=== PATIENT | female | born 1945 | race Two or more races ===

== ENCOUNTER 2025-07-30 10:35 | Outpatient (CLI) | payer MEDICAID ==
[2025-07-30 11:22] LABS: Hematocrit 35.0 % (36.0-46.0); Hemoglobin 11.4 g/dL (12.2-16.2); Mean Corpuscular Hemoglobin 26.9 pg (28.0-32.0); Mean Corpuscular Volume 82.4 fL (80.0-100.0); Nucleated Red Blood Cells % 0.0 %
[2025-07-30 11:45] LABS: Urine Budding Yeast OCCASIONAL /hpf (None Seen); Urine Protein, UAD 1+ (Negative)
[2025-07-30 11:56] LABS: Alanine Aminotransferase 12 U/L (7-40); Albumin 4.2 g/dL (3.2-4.8); Alkaline Phosphatase 73 U/L (46-116); Anion Gap 8 (5-15); BUN/Creatinine Ratio 19.8 (10.0-20.0); Blood Urea Nitrogen 20 mg/dL (9-23); Calcium 9.4 mg/dL (8.7-10.4); Carbon Dioxide 29 mmol/L (20-31); Chloride 102 mmol/L (98-107); Potassium 4.9 mmol/L (3.5-5.1); Sodium 139 mmol/L (136-145); Total Protein 7.6 g/dL (5.7-8.2); Triglycerides 111 mg/dL (< 150)
[2025-07-30 11:57] LABS: Bilirubin, Total 0.5 mg/dL (0.2-1.0); Cholesterol 175 mg/dL (< 200)
[2025-07-30 11:58] LABS: Glucose 233 mg/dL (74-106); HDL Cholesterol 67 mg/dL (40-59)
== END 2025-07-30 17:00 | disposition home or self-care (01) ==
LOC: LAB 10:35
PROVIDERS: ATTEND Internal Medicine
DX: E11.69 Type 2 diabetes mellitus with other specified complication (principal); E78.00 Pure hypercholesterolemia, unspecified; R68.89 Other general symptoms and signs; Z12.11 Encounter for screening for malignant neoplasm of colon
CPT/HCPCS: 36415; 80053; 80061; 81001; 83036; 85025